=== PATIENT | female | born 1950 | race Two or more races ===

== ENCOUNTER 2018-07-30 14:36 | Emergency (ER) | payer OTHER ==
[~2018-07-30] VITALS: Ht 167.6 cm; Wt 75.7 kg
[2018-07-30] MEDS ORDERED: NEURONTIN300 MG (14:52)
[2018-07-30] MEDS ORDERED: TRAM1TAB98 (14:52)
[2018-07-30] MEDS ORDERED: IRBESARTAN-HCT1 EACH (14:52)
[2018-07-30] MEDS ORDERED: LANSOPRAZOLE30 MG (14:53)
[2018-07-30] MEDS ORDERED: RANITIDINE HCL300 MG (14:53)
[2018-07-30] MEDS ORDERED: BAYER CHEWABLE81 MG (14:53)
[2018-07-30] MEDS ORDERED: SIMVASTATIN20 MG (14:53)
[2018-07-30] MEDS ORDERED: DICLOFENAC POTA50 MG (14:54)
[2018-07-30] MEDS ORDERED: HYOSCYAMINE0.125 MG (14:54)
[2018-07-30] MEDS ORDERED: CALCIUM 600 +1 EAC7 (14:54)
[2018-07-30] MEDS ORDERED: IBUPROFEN800 MG (14:54)
== END 2018-07-30 20:08 | disposition home or self-care (01) ==
LOC: ER 14:36
DX: M54.41 Lumbago with sciatica, right side (principal)